=== PATIENT | female | born 1965 | race Caucasian/White ===

== ENCOUNTER → 2016-12-29 | Outpatient (CLI) | payer BC | END | disposition home or self-care (01) | LOC: C.MAMM 09:56 | PROVIDERS: ATTEND Surgery | DX: E21.3 Hyperparathyroidism, unspecified (principal) ==

== ENCOUNTER 2019-03-26 11:25 | Observation (INO) ==
[2019-03-26] MEDS ORDERED: SODIUM CHLORIDE 0.9% 1000ML 1,000 ML IV ONE (11:44)
[2019-03-26] MEDS ORDERED: KETOROLAC TROMETHAMINE 15 MG/ML VIAL IV STA (11:44)
[2019-03-26 12:22] LABS: Basophils # (auto) 0.02 K/uL (0-0.2); Basophils % (auto) 0.3 %; Eosinophils # (auto) 0.09 K/uL (0-0.5); Eosinophils % (auto) 1.3 %; Hematocrit (blood only) 41.8 % (37-47); Hemoglobin 13.8 g/dL (12.0-16.0); Immature Granulocytes # (auto) 0.01 K/uL (0.00-0.02); Immature Granulocytes % (auto) 0.1 %; Lymphocytes # (auto) 1.53 K/uL (1.2-3.4); Lymphocytes % (auto) 21.8 %; Mean Corpuscular Hemoglobin 26.7 pg (25-34); Mean Corpuscular Volume 80.9 fL (80-100); Mean Platelet Volume 12.3 fL (7.4-10.4); Monocytes # (auto) 0.74 K/uL (0.11-0.59); Monocytes % (auto) 10.6 %; Neutrophils # (auto) 4.62 K/uL (1.4-6.5); Neutrophils % (auto) 65.9 %; Platelet Count 182 K/uL (130-400); RDW Standard Deviation 43.8 fL (36.4-46.3); Red Blood Count 5.17 M/uL (4.2-5.4); White Blood Count 7.01 K/uL (4.8-10.8)
[2019-03-26 12:24] LABS: Appearance Urine Clear (Clear); Bilirubin Urine Negative (Negative); Blood Urine Negative (Negative); Color Urine Yellow; Glucose Urine UA Negative (Negative); Ketones Urine Negative (Negative); Leukocyte Esterase Urine Negative (Negative); Nitrite Urine Negative (Negative); Protein Urine Negative (Negative); Specific Gravity Urine 1.012 (1.000-1.030); Urobilinogen Urine Negative (Negative); pH Urine 5.5 (4.5-7.5)
[2019-03-26 12:41] LABS: Albumin Level 3.9 gm/dl (3.4-5.0); BUN Creatinine Ratio 15.2 (10-20); Bilirubin Direct 0.2 mg/dl (0-0.2); Calcium 9.3 mg/dl (8.5-10.1); Creatinine Clr Calc Pharmacy 70.6 ml/min; Est GFR (African American) 96.1; Est GFR (Non-African American) 82.9; Potassium 3.7 mmol/L (3.5-5.1)
[2019-03-26 12:44] LABS: Bilirubin,Total 0.6 mg/dl (0.2-1); Total Protein 7.6 gm/dl (6.4-8.2)
[2019-03-26] MEDS ORDERED: IOVERSOL 100ml IV PRN (13:07)
--- NOTE | 2019-03-26 13:29 | CT Scan Report ---
CT abd pelvis IV con only CT DOSE: 368.90 mGycm HISTORY: Flank pain ro aapy TECHNIQUE: Multiaxial CT images of the abdomen and pelvis were performed following the use of intrave nous contrast. A dose lowering technique was utilized adhering to the principles of ALARA. COMPARISON STUDY: None. FINDINGS: Lung bases are clear. Liver spleen and pancreas are unremarkable. No evidence for gallbladd er distention. 7 x 11 mm nonobstructing lower pole right renal calcification. Nonobstructive bowel pattern. Fluid-filled slightly distended appendix with a maximum diameter of 7.5 mm. No evidence for abscess c ollection or obstructive change. Pelvic bowel pattern is unremarkable. There are small ovarian follicular cysts less than 1.5 cm. Bladder is midline. IMPRESSION: 1. Findings of acute appendicitis. 2. The appendix is fluid-filled and distended to 7.5 mm in maximum diameter. 3. No evidence for abscess collection or obstructive change. 4. Nonobstructing lower pole right renal calcification. 5. Several small ovarian follicular cysts. The above report was generated using voice recognition software. It may contain grammatical, syntax or spelling errors. Electronically signed by: Harshil Gutierrez M.D. 03/26/2019 1:28 PM
[2019-03-26] MEDS ORDERED: cefTRIAXone SODIUM 1,000 MG/50 ML BAG IV STA (13:49)
[2019-03-26] MEDS ORDERED: metroNIDAZOLE 500 MG/100 ML BAG IV STA (13:49)
[2019-03-26] MEDS ORDERED: ONDANSETRON INJ 2 MG/ML 2 ML VIAL ONE (13:58)
[2019-03-26] MEDS ORDERED: PROPOFOL IV EMULSION 10 MG/ML 20 ML VIAL IV ONE (13:58)
[2019-03-26] MEDS ORDERED: GLYCOPYRROLATE 0.2 MG/ML VIAL ONE ×2 (13:58→15:53)
[2019-03-26] MEDS ORDERED: fentaNYL citrate 100 MCG/2 ML VIAL ONE (13:58)
[2019-03-26] MEDS ORDERED: LIDOCAINE HCL 2% 2 ML VIAL/AMP(20MG/ML) INFIL ONE (13:58)
[2019-03-26] MEDS ORDERED: MIDAZOLAM HCL 1 MG/ML 2ML VIAL ONE (13:58)
[2019-03-26] MEDS ORDERED: DEXAMETHASONE SOD INJ 4 MG/ML VIAL ONE (13:58)
[2019-03-26] MEDS ORDERED: NEOSTIGMINE METHYLSULFATE 5 MG/5 ML SYR ONE (13:58)
[2019-03-26] MEDS ORDERED: BUPIVACAINE 0.5 % 5 MG/1 ML MPF 30ML VIAL ONE (14:00)
[2019-03-26] MEDS ORDERED: LARYING-O-JET KIT (LTA) ONE (14:02)
[2019-03-26] MEDS ORDERED: ROCURONIUM BROMIDE 10 MG/ML 5 ML VIAL ONE (14:02)
--- NOTE | 2019-03-26 14:04 | Anesthesiology Consultation ---
Date of Service March 26, 2019 Assessment & Plan (1) Encounter for pre-operative examination: Chart Review Chart Review: Acceptable Risk for Surgery Consults Requested none ASA [id number] Proposed Anesthesia Anesthesia Type: General Risk / Benefits Reviewed With: PT / POA / Parent / Guardian, Accepts Plan and Informed Consent Obtained History Surgery Operation Date: 03/26/19 07:00 Proposed Procedures p Laparoscopic Appendectomy - Daniele Andre MD, FACS Height/Weight Height: 5 ft 5 in Weight: 55.7 kg Allergies Allergy/AdvReac Type Severity Reaction Status Date / Time No Known Allergies Allergy Unknown Verified 12/28/03 09:23 Medications Home Medications Medication Instructions Recorded Confirmed Last Taken cholecalciferol (vitamin D3) 5,000 unit PO QAM #0 11/18/17 03/26/19 Unknown magnesium oxide 400 mg PO QAM #0 11/18/17 03/26/19 Unknown melatonin 3 mg PO HS #0 11/18/17 03/26/19 03/25/19 bupropion HCl 150 mg PO QAM 03/26/19 03/26/19 03/26/19 cyclosporine [Restasis] 1 drp OPB BID 03/26/19 03/26/19 03/26/19 ferrous sulfate 325 mg PO BID 03/26/19 03/26/19 Unknown multivitamin 1 tab PO QAM 03/26/19 03/26/19 Unknown omega-3 fatty acids-fish oil 1 cap PO QAM 03/26/19 03/26/19 Unknown sertraline 100 mg PO QAM 03/26/19 03/26/19 03/26/19 Active Medications Generic Name Dose Route Start Last Admin Trade Name Freq PRN Reason Stop Dose Admin Ioversol 94 ml 03/26/19 13:07 03/26/19 13:08 Optiray 320 100ml IV 03/30/19 13:06 94 ml ONCE PRN Administration Interaction Checking NPO Date Last Intake of Fluids: 03/26/19 Time Last Intake of Fluids: 10:00 Date Last Intake of Solids: 03/26/19 Time Last Intake of Solids: 10:00 Past Medical History Medical History Concussion No pertinent past medical history Exercise / Class Metabolic Activity II 4-5 Yardwork/Stairs/Walk up hill Past Surgical History Surgical History No pertinent past surgical history S/P decompression of ulnar nerve S/P parathyroidectomy S/P wrist surgery Past Anesthesia History No Hx of Anesthesia Complications and No Family Hx of Anesthesia Complications History of PONV No Hx of PONV and No Hx of Motion Sickness Social History Smoking Status: Never smoker Physical Exam Vital Signs Last Vital Signs Temp 36.9 C 03/26/19 14:54 Pulse 63 03/26/19 14:54 Resp 18 03/26/19 14:54 BP 136/72 03/26/19 14:54 Pulse Ox 100 03/26/19 14:54 ENMT Mouth: no dentition abnormality Thyromental Distance: > or= 3.5 Finger Breadths Mallampati Class: II Neck normal visual inspection Respiratory normal respiratory effort Auscultation: lungs clear to auscultation bilaterally Cardiovascular Rate/Rhythm: regular rate and regular rhythm Testing Laboratory Results 03/26/19 12:08 03/26/19 12:08 Urine Color Yellow 03/26/19 12:08 Urine Appearance Clear (Clear) 03/26/19 12:08 Urine pH 5.5 (4.5-7.5) 03/26/19 12:08 Ur Specific [place] 1.012 (1.000-1.030) 03/26/19 12:08 Urine Protein Negative (Negative) 03/26/19 12:08 Urine Glucose (UA) Negative (Negative) 03/26/19 12:08 Urine Ketones Negative (Negative) 03/26/19 12:08 Urine Nitrite Negative (Negative) 03/26/19 12:08 Ur Leukocyte Esterase Negative (Negative) 03/26/19 12:08
--- NOTE | 2019-03-26 14:09 | History & Physical Report ---
Date of Service March 26, 2019 Assessment & Plan (1) Appendicitis: This is a 53y F who presents to the [facility] ED on 03/26/19 feeling generally unwell along with right lower abdominal pain with eating/walking/palpation. In the ED CT a/p performed revealed findings concerning for acute appendicitis. WBC 7 and patient afebrile. On exam patient is tender in the RLQ. Keep patient NPO with IVF and administer pre-op abx. We will book patient for the OR today. Surgical consent obtained by Dr. Andre. Patient expressed some concerns regarding a concussion injury after a fall last year after para-thyroid surgery, anesthesia will eval pre-op. Dr Andre-evaluated patient in the emergency room-presented with abdominal pain which appears to be in the right lower quadrant. Her CAT scan shows evidence of acute appendicitis with no abscess. We will proceed with laparoscopic appendectomy possible open appendectomy History of Present Illness Primary Care Provider: Len Stanley MD This is a 53y F who presents to the [facility] ED on 03/26/19 with complaints of feeling unwell and abdominal pain after eating/activity/and during palpation. Patient states that she noticed the abdominal pain on started on Monday, it woke her up from her sleep and she was not able to get comfortable. During this time she felt nauseated, but did not vomit. On Monday she said she slept majority of the day and then today was debating going to work, however she continued to feel unwell and felt tenderness around her belly button and right lower abdomen upon palpation. She called her PCP to describe her symptoms and they recommended the patient come to the ED for further evaluation. In the ED a CT a/p was performed revealing concern for acute appendicitis. WBC 7 and patient afebrile. She endorses + bloating, burping, and chills. She denies diarrhea. She states her pain is worse after eating and/or walking and describes it as sharp. Surgery was consulted for further evaluation. Patient has no previous abdominal surgeries. Allergies Allergy/AdvReac Type Severity Reaction Status Date / Time No Known Allergies Allergy Unknown Verified 12/28/03 09:23 Home Medications Home Medications Medication Instructions Recorded Confirmed Type cholecalciferol (vitamin D3) 5,000 unit PO QAM #0 11/18/17 03/26/19 History magnesium oxide 400 mg PO QAM #0 11/18/17 03/26/19 History melatonin 3 mg PO HS #0 11/18/17 03/26/19 History bupropion HCl 150 mg PO QAM 03/26/19 03/26/19 History cyclosporine [Restasis] 1 drp OPB BID 03/26/19 03/26/19 History ferrous sulfate 325 mg PO BID 03/26/19 03/26/19 History multivitamin 1 tab PO QAM 03/26/19 03/26/19 History omega-3 fatty acids-fish oil 1 cap PO QAM 03/26/19 03/26/19 History sertraline 100 mg PO QAM 03/26/19 03/26/19 History Past Med/Surg History Medical History No pertinent past medical history Surgical History No pertinent past surgical history Social History Feels Safe at Home: Yes Smoking Status: Never smoker Review of Systems Constitutional: + chills; no fever Respiratory: no shortness of breath Cardiovascular: no chest pain Gastrointestinal: + abdominal pain (upon palpation around belly button and right lower abdomen), + belching, + bloating and + nausea; no vomiting and no change in bowel habits Physical Exam Physical Exam: awake/alert Constitutional: well developed and well nourished; no acute distress Respiratory: normal respiratory effort Gastrointestinal (Abdomen): Inspection/Auscultation: abdomen not distended and no abdominal surgical scar Percussion/Palpation: + abdomen tender (in RLQ) and abdomen soft Results & Data Vital Signs (Past 12 Hours) Vital Signs Temp Pulse Pulse Resp BP BP Pulse Ox 03/26/19 12:40 60 20 124/64 100 03/26/19 11:27 36.7 C 61 20 143/[address] abd pelvis IV con only CT DOSE: 368.90 mGycm HISTORY: Flank pain ro aapy TECHNIQUE: Multiaxial CT images of the abdomen and pelvis were performed following the use of intravenous contrast. A dose lowering technique was utilized adhering to the principles of ALARA. COMPARISON STUDY: None. FINDINGS: Lung bases are clear. Liver spleen and pancreas are unremarkable. No evidence for gallbladder distention. 7 x 11 mm nonobstructing lower pole right renal calcification. Nonobstructive bowel pattern. Fluid-filled slightly distended appendix with a maximum diameter of 7.5 mm. No evidence for abscess collection or obstructive change. Pelvic bowel pattern is unremarkable. There are small ovarian follicular cysts less than 1.5 cm. Bladder is midline. IMPRESSION: 1. Findings of acute appendicitis. 2. The appendix is fluid-filled and distended to 7.5 mm in maximum diameter. 3. No evidence for abscess collection or obstructive change. 4. Nonobstructing lower pole right renal calcification. 5. Several small ovarian follicular cysts. The above report was generated using voice recognition software. It may contain grammatical, syntax or spelling errors. Electronically signed by: Harshil Gutierrez M.D. 03/26/2019 1:28 PM PG Care Time/CCT Total # of Minutes Spent Total Time Spent with Patient: Total time spent is greater than 50% in coordination of care (as documented) at patient's floor/unit and/or counseling patient: (1) Appendicitis Appendicitis type: unspecified Qualified Code(s): K37 - Unspecified appendicitis
[2019-03-26] MEDS ORDERED: ePHEDrine sulfate 50 MG/ML AMP IV PRN (14:28)
[2019-03-26] MEDS ORDERED: fentaNYL citrate 100 MCG/2 ML VIAL IV PRN (14:28)
[2019-03-26] MEDS ORDERED: ONDANSETRON INJ 2 MG/ML 2 ML VIAL IV PRN ×2 (14:28→17:33)
[2019-03-26] MEDS ORDERED: ATROPINE SULFATE 0.1 MG/ML 10ML SYR IV PRN (14:28)
--- NOTE | 2019-03-26 14:56 | Emergency Department Note ---
Entered by Justin Hendrix acting as a scribe for Ashutosh Ross History of Present Illness General Chief complaint: Abdominal Pain Stated complaint: ABD PAIN Time Seen by Provider: 03/26/19 11:32 Source: patient History of Present Illness Provider complaint: right sided abdominal pain Onset (ago): day(s) 3 Location: abdomen and right Radiation: non-radiation Maximum Pain Intensity: 1 Associated symptoms: + denies other symptoms and + nausea/vomiting (some nausea and no vomiting); no chest pain and no shortness of breath The patient is a 53 year old female who presents to the emergency department for evaluation of intermittent right sided abdominal pain that began 3 days ago. The patient states that she was woken up in the middle of the night with the pain and it has persisted with some nausea. She notes she felt the need to vomit but she has not eaten much and been feeling unwell when she does. The patient reports that she is beginning to feel better currently but was told to come to the ED for evaluation. The patient denies vomiting, SOB, chest pain, urinary changes, blood in stool, and any other symptoms. Home Medications Home Medications Medication Instructions Recorded Confirmed Type cholecalciferol (vitamin D3) 5,000 unit PO QAM #0 11/18/17 03/26/19 History magnesium oxide 400 mg PO QAM #0 11/18/17 03/26/19 History melatonin 3 mg PO HS #0 11/18/17 03/26/19 History bupropion HCl 150 mg PO QAM 03/26/19 03/26/19 History cyclosporine [Restasis] 1 drp OPB BID 03/26/19 03/26/19 History ferrous sulfate 325 mg PO BID 03/26/19 03/26/19 History multivitamin 1 tab PO QAM 03/26/19 03/26/19 History omega-3 fatty acids-fish oil 1 cap PO QAM 03/26/19 03/26/19 History sertraline 100 mg PO QAM 03/26/19 03/26/19 History Allergies Allergy/AdvReac Type Severity Reaction Status Date / Time No Known Allergies Allergy Unknown Verified 12/28/03 09:23 Past Med/Surg History Medical History No pertinent past medical history Surgical History No pertinent past surgical history Social History Feels Safe at Home: Yes Smoking Status: Never smoker Review of Systems See HPI for pertinent positives & negatives. and A total of 10 systems reviewed and were otherwise negative Physical Exam Vital Signs Vital Signs - 24 hr 03/26/19 11:27 03/26/19 12:40 03/26/19 14:34 Temperature 36.7 C Temperature Source Oral Pulse Rate 61 Pulse Rate [Finger] 60 65 Respiratory Rate 20 20 18 Blood Pressure 143/78 H Blood Pressure [Left Arm] 124/64 131/77 Blood Pressure Mean 99 Blood Pressure Mean [Left Arm] 84 95 Pulse Oximetry 100 100 100 Oxygen Delivery Method Room Air Room Air Sepsis Recent Fever Within 48 Hours No Sepsis New/Unexplained Change in Mental Status No Sepsis Action Taken by Nursing No Action Required GENERAL: She is oriented to person, place, and time. She appears well-developed and well-nourished. She does not appear distressed. HENT: Exam performed. - Head: Normocephalic and atraumatic. - Right Ear: External ear normal. No mastoid tenderness. - Left Ear: External ear normal. No mastoid tenderness. - Mouth/Throat: The oropharynx is clear and moist. No trismus in the jaw. No dental abscesses or uvula swelling. No oropharyngeal exudate or tonsillar abscesses. EYES: Conjunctivae and EOM are normal. Pupils are equal, round, and reactive to light. Right eye exhibits no discharge. Left eye exhibits no discharge. No scleral icterus. NECK: Normal range of motion. Neck supple. No JVD present. No spinous process tenderness present. No carotid bruit present. No rigidity. No tracheal deviation and normal range of motion present. No Brudzinski's sign and no Kernig's sign noted. CV: Normal rate, regular rhythm, normal heart sounds and intact distal pulses. There is no peripheral edema. Palpable radial pulses bue. PULM/CHEST: Effort normal and breath sounds normal. No respiratory distress. No stridor. She has no wheezes. She has no rales. Chest Wall: She exhibits no tenderness. ABD: The abdomen is soft. Bowel sounds are normal. She has no distension. No mass is present. There is tenderness to palpationof right lower quadrent. There is no rebound, no guarding, no Salazar's sign and no tenderness at McBurney's point. Rovsig negative MUSC/SKEL: Normal range of motion. There is no peripheral edema, tenderness or deformity. LYMPH: No cervical adenopathy. NEURO: She is alert and oriented to person, place, and time. She has normal strength. No cranial nerve deficit or sensory deficit. Coordination and gait normal. GCS eye subscore is 4. GCS verbal subscore is 5. GCS motor subscore is 6. cerbellar tests wnl. SKIN: Skin is warm and dry. She is not diaphoretic. PSYCH: She has a normal mood and affect. Her behavior is normal. Judgment and thought content normal. Course Course 1140: Past medical records reviewed. The patient was evaluated in room C01B. A complete history and physical exam was performed. 1435: Vital signs stable. On repeat physical exam the patient continues have pain on palpation of the right lower quadrant. Labs within normal limits. CT shows evidence of acute appendicitis. Patient will be started on Rocephin and Flagyl. I spoke with Octavio for Dr. Andre- general surgery, they will evaluate for further management. Administered Medications Ioversol (Optiray 320 100ml) 94 ml IV ONCE PRN PRN Reason: Interaction Checking Stop: 03/30/19 13:06 Last Admin: 03/26/19 13:08 Dose: 94 ml Documented by: [id number] Discontinued Medications Sodium Chloride (Nss 1000ml) 1,000 mls @ 999 mls/hr IV .Q1H1M ONE Stop: 03/26/19 12:44 Last Infusion: 03/26/19 13:15 Dose: 0 mls/hr Documented by: [id number] Admin: 03/26/19 12:14 Dose: 999 mls/hr Documented by: [id number] Ceftriaxone Sodium (Rocephin) 1,000 mg in 50 mls @ 100 mls/hr IV NOW STA Stop: 03/26/19 14:18 Last Infusion: 03/26/19 14:29 Dose: 0 mls/hr Documented by: [id number] Admin: 03/26/19 13:59 Dose: 100 mls/hr Documented by: [id number] Metronidazole (Flagyl) 500 mg in 100 mls @ 100 mls/hr IV NOW STA Stop: 03/26/19 14:48 Last Admin: 03/26/19 14:11 Dose: 100 mls/hr Documented by: [id number] Ketorolac Tromethamine (Toradol) 15 mg IV NOW STA Stop: 03/26/19 11:45 Last Admin: 03/26/19 12:14 Dose: Not Given Documented by: [id number] Medical Decision Making Medical Records Attestation: I reviewed the patient's medical records. Home Medications Current Medication List: was personally reviewed by me Laboratory Data Attestation: I reviewed the patient's lab results. Result diagrams: 03/26/19 12:08 03/26/19 12:08 Lab Results 03/26/19 03/26/19 03/26/19 Range/Units 12:08 12:08 12:08 WBC 7.01 (4.8-10.8) K/uL RBC 5.17 (4.2-5.4) M/uL Hgb 13.8 (12.0-16.0) g/dL Hct 41.8 (37-47) % MCV 80.9 (80-100) fL MCH 26.7 (25-34) pg MCHC 33.0 (32-36) g/dL RDW Std Deviation 43.8 (36.4-46.3) fL RDW Coeff of Sum[place] 15.0 H (11.5-14.5) % Plt Count 182 (130-400) K/uL MPV 12.3 H (7.4-10.4) fL Immature Gran % (Auto) 0.1 % Neut % (Auto) 65.9 % Lymph % (Auto) 21.8 % [place] % (Auto) 10.6 % Eos % (Auto) 1.3 % Baso % (Auto) 0.3 % Immature Gran # (Auto) 0.01 (0.00-0.02) K/uL Neut # (Auto) 4.62 (1.4-6.5) K/uL Lymph # (Auto) 1.53 (1.2-3.4) K/uL [place] # (Auto) 0.74 H (0.11-0.59) K/uL Eos # (Auto) 0.09 (0-0.5) K/uL Baso # (Auto) 0.02 (0-0.2) K/uL Sodium 138 (136-145) mmol/L Potassium 3.7 (3.5-5.1) mmol/L Chloride 106 (98-107) mmol/L Carbon Dioxide 26 (21-32) mmol/L Anion Gap 6.0 (3-11) BUN 12 (7-18) mg/dl Creatinine 0.81 (0.6-1.2) mg/dl Est Cr Clr Drug Dosing 70.6 ml/min Est GFR ( Amer) 96.1 Est GFR (Non-Af Amer) 82.9 BUN/Creatinine Ratio 15.2 (10-20) Glucose 95 (70-99) mg/dl Calcium 9.3 (8.5-10.1) mg/dl Total Bilirubin 0.6 (0.2-1) mg/dl Direct Bilirubin 0.2 (0-0.2) mg/dl AST 22 (15-37) U/L ALT 30 (12-78) U/L Alkaline Phosphatase 70 (45-117) U/L Total Protein 7.6 (6.4-8.2) gm/dl Albumin 3.9 (3.4-5.0) gm/dl Lipase 137 (73-393) U/L Urine Color Yellow Urine Appearance Clear (Clear) Urine pH 5.5 (4.5-7.5) Ur Specific [place] 1.012 (1.000-1.030) Urine Protein Negative (Negative) Urine Glucose (UA) Negative (Negative) Urine Ketones Negative (Negative) Urine Blood Negative (Negative) Urine Nitrite Negative (Negative) Urine Bilirubin Negative (Negative) Urine Urobilinogen Negative (Negative) Ur Leukocyte Esterase Negative (Negative) Imaging Data Radiologist's Impression: Radiology results as stated below per my review and the radiologist's interpretation: CT abd pelvis IV con only CT DOSE: 368.90 mGycm HISTORY: Flank pain ro aapy TECHNIQUE: Multiaxial CT images of the abdomen and pelvis were performed following the use of intravenous contrast. A dose lowering technique was utili zed adhering to the principles of ALARA. COMPARISON STUDY: None. FINDINGS: Lung bases are clear. Liver spleen and pancreas are unremarkable. No evidence for gallbladder distention. 7 x 11 mm nonobstructing lower pole right renal calcification. Nonobstructive bowel pattern. Fluid-filled slightly distended appendix with a maximum diameter of 7.5 mm. No evidence for abscess collection or obstructive change. Pelvic bowel pattern is unremarkable. There are small ovarian follicular cysts less than 1.5 cm. Bladder is midline. IMPRESSION: 1. Findings of acute appendicitis. 2. The appendix is fluid-filled and distended to 7.5 mm in maximum diameter. 3. No evidence for abscess collection or obstructive change. 4. Nonobstructing lower pole right renal calcification. 5. Several small ovarian follicular cysts. The above report was generated using voice recognition software. It may contain grammatical, syntax or spelling errors. Electronically signed by: Harshil Gutierrez M.D. 03/26/2019 1:28 PM Blood Pressure Blood Pressure Findings: Elevated blood pressure Blood Pressure Disposition: Referred to patients primary care provider MDM Narrative Vital signs stable. On repeat physical exam the patient continues have pain on palpation of the right lower quadrant. Labs within normal limits. CT shows evidence of acute appendicitis. Patient will be started on Rocephin and Flagyl. I spoke with Octavio for Dr. Andre- general surgery, they will evaluate for further management. Impression & Plan Appendicitis Discharge Plan Visit Data Chief Complaint: Abdominal Pain Stated Complaint: ABD PAIN ED Provider: Ashutosh Ross Discharge Problem: Appendicitis Patient Disposition: Still a Patient Discharge Instructions Interventions: ED Discharge Assessment Last Done: 03/26/19 14:35 Discharge Problem: Appendicitis Qualifiers: Appendicitis type: unspecified Qualified Code(s): K37 - Unspecified appendicitis The scribe's documentation has been prepared under my direction and personally reviewed by me in its entirety. I confirm that the note above accurately reflects all work, treatment, procedures, and medical decision making performed by me.
[2019-03-26] MEDS ORDERED: ACETAMINOPHEN 1000 MG/100 ML IV IV ONE (15:15)
[2019-03-26] MEDS ORDERED: KETOROLAC 30 MG/ML VIAL ONE (15:49)
[2019-03-26] MEDS ORDERED: ACETAMINOPHEN 1,000 MG/100 ML VIAL IV ONE (15:59)
--- NOTE | 2019-03-26 15:59 | Post Operative Brief Note ---
PG Immediate Post Op with CF Date of Surgery March 26, 2019 Pre & Post Diagnosis Operation Date: 03/26/19 07:00 Pre-Op Diagnosis: Appendicitis Post-Op Diagnosis: Appendicitis I identified the patient and participated in the time-out.: Yes Procedure Operation Date: 03/26/19 07:00 Actual Procedures p Laparoscopic Appendectomy - Daniele Andre MD, FACS Surgeon Daniele Andre MD, FACS Research And Development Director Deneen Schrader Estimated Blood Loss 5 Findings Consistent with Post-Op Diagnosis Specimens Specimen Description: A. Appendix.
--- NOTE | 2019-03-26 16:33 | Operative Report ---
DATE OF OPERATION: 03/26/2019 NAME OF OPERATION: Laparoscopic appendectomy. PREOPERATIVE DIAGNOSIS: Acute appendicitis. POSTOPERATIVE DIAGNOSIS: Acute appendicitis. STAFF SURGEON: Daniele Andre MD. RAISIN WASHER: Micheline Whitfield. ANESTHESIA: General. DESCRIPTION OF PROCEDURE: The patient was brought in the Operating Room and placed on the operating table in supine position. Her abdomen was prepped and draped in usual fashion. Pneumatic stockings, orogastric tube were placed. My mailing machine assistant helped with prepping, draping, removal of her appendix and closure of the wound. A 0.5% plain Marcaine was used to anesthetize all incisions. Incision was made above the umbilicus, carrying dissection down to the fascia, placing a Veress needle producing pneumoperitoneum, placing a 5 mm port. Under visualization, a 5 mm port was placed suprapubically. I was able to visualize the appendix. A 12 mm port placed in the left lower quadrant. At this point, the appendix was retracted. The base of the appendix was transected using an Endo-XIOMARA stapler and then the mesoappendix transected using the Endo XIOMARA stapler. There is a mild amount of bleeding from the base, which was oozing at the staple line. A 10 mm clips were used to place over this area. After appropriate irrigation, the appendix was placed in an Endobag and removed through the left lower quadrant site. After additional irrigation, all ports were removed. The fascia in the left lower quadrant closed using interrupted 0 Vicryl suture. Skin reapproximated at all levels using subcuticular 4-0 Monocryl, Steri-Strips in the left lower quadrant, Dermabond at the other incisions. The patient transferred to Recovery Room in stable condition. I attest to the content of the Intraoperative Record and any orders documented therein. Any exception s are noted below.
--- NOTE | 2019-03-26 16:45 | Anesthesiology Progress Note ---
Date of Service March 26, 2019 Anesthesia Post Procedure Vital Signs Vital Signs: Temp Pulse Pulse Pulse Resp BP BP 03/26/19 16:30 54 L 11 L 148/75 H 03/26/19 16:25 57 L 15 140/72 03/26/19 16:20 58 L 17 131/75 03/26/19 16:15 65 13 139/73 03/26/19 16:11 37.3 C 65 67 19 144/74 H 144/74 H 03/26/19 14:54 36.9 C 63 18 136/72 03/26/19 14:34 65 18 131/77 03/26/19 12:40 60 20 124/64 03/26/19 11:27 36.7 C 61 20 143/78 H Pulse Ox 03/26/19 16:30 100 03/26/19 16:25 100 03/26/19 16:20 100 03/26/19 16:15 100 03/26/19 16:11 100 03/26/19 14:54 100 03/26/19 14:34 100 03/26/19 12:40 100 03/26/19 11:27 100 Pain Intensity Abdomen: Pain Intensity: 0 Transfer of Care Handoff Completed per policy Notes Mental Status: alert / awake / arousable Patient Amnestic to Procedure: Yes Nausea / Vomiting: adequately controlled Pain: adequately controlled Airway Patency, RR, SpO2: stable & adequate BP & HR: stable & adequate Hydration State: stable & adequate Anesthetic Complications: no major complications apparent
[2019-03-26] MEDS ORDERED: MoRPHine SULFATE 2 MG/ML CARP IV PRN ×2 (17:33)
[2019-03-26] MEDS ORDERED: PROMETHAZINE HCL 12.5 MG in SODIUM CHLORIDE 0.9% 50 ML IV PRN (17:33)
[2019-03-26] MEDS ORDERED: HYDROCODONE/ACETAMOPHEN 5/325MG TAB PO PRN ×2 (17:33)
[2019-03-26] MEDS: IBUPROFEN 600 MG TAB PO PRN (21:49)
[2019-03-26] MEDS ORDERED: INFLUENZA VIRUS QUAD VACCINE 0.5 ML SYR IM ONE (22:45)
[2019-03-26] MEDS ORDERED: INFLUENZA ADMINISTRATION CHARGE ONE (22:45)
[2019-03-26] MEDS: ACETAMINOPHEN 325 MG TAB PO PRN (23:50)
[2019-03-26] MEDS: SODIUM CHLORIDE 0.9% 1000ML 1,000 ML IV SCH (23:51)
[2019-03-27] MEDS: SODIUM CHLORIDE 0.9% 1000ML 1,000 ML IV SCH (03:55)
[2019-03-27 03:57] VITALS: PULSE 60
[2019-03-27] MEDS: IBUPROFEN 600 MG TAB PO PRN (04:13)
--- NOTE | 2019-03-27 06:23 | Discharge Summary ---
PRINCIPAL DIAGNOSIS: Acute appendicitis. PROCEDURES: The patient underwent laparoscopic appendectomy. HISTORY OF PRESENT ILLNESS: The patient is a 53-year-old female presenting to the Emergency Room with acute abdominal pain, found to have acute appendicitis. She was taken to the operating room on 03/26/2019 where she underwent laparoscopic appendectomy, which she tolerated very well and was felt stable for discharge home today to be followed in the surgical clinic within 1-2 weeks.
[2019-03-27 07:08] VITALS: BP 118/70; TEMP 98.4; O2SAT 99
[2019-03-27] MEDS: ACETAMINOPHEN 325 MG TAB PO PRN (07:25)
--- NOTE | 2019-03-27 08:20 | Anesthesiology Progress Note ---
Date of Service March 27, 2019 Anesthesia Post Procedure Vital Signs Vital Signs: Temp Pulse Pulse Pulse Resp BP BP 03/27/19 07:07 36.9 C 60 18 118/70 03/27/19 03:52 36.8 C 60 16 112/70 03/26/19 23:12 36.8 C 64 16 104/62 03/26/19 20:33 36.7 C 66 16 107/57 L 03/26/19 19:31 36.7 C 66 20 105/65 03/26/19 18:28 37.3 C 60 16 116/56 L 03/26/19 18:01 36.7 C 57 L 16 127/71 03/26/19 17:33 37.0 C 55 L 16 132/75 03/26/19 17:20 55 L 19 136/72 03/26/19 17:15 56 L 13 126/76 03/26/19 17:10 53 L 15 125/74 03/26/19 17:05 54 L 18 145/70 H 03/26/19 17:00 54 L 14 136/73 03/26/19 16:55 53 L 16 137/74 03/26/19 16:51 37.2 C 55 L 17 143/67 H 03/26/19 16:50 57 L 17 143/67 H 03/26/19 16:45 54 L 19 146/71 H 03/26/19 16:40 53 L 16 138/75 03/26/19 16:35 49 L 16 124/81 03/26/19 16:30 54 L 11 L 148/75 H 03/26/19 16:25 57 L 15 140/72 03/26/19 16:20 58 L 17 131/75 03/26/19 16:15 65 13 139/73 03/26/19 16:11 37.3 C 65 67 19 144/74 H 144/74 H 03/26/19 14:54 36.9 C 63 18 136/72 03/26/19 14:34 65 18 131/77 03/26/19 12:40 60 20 124/64 03/26/19 11:27 36.7 C 61 20 143/78 H Pulse Ox 03/27/19 07:07 99 03/27/19 03:52 97 03/26/19 23:12 94 03/26/19 20:33 95 03/26/19 19:31 95 03/26/19 18:28 96 03/26/19 18:01 96 03/26/19 17:33 97 03/26/19 17:20 96 03/26/19 17:15 96 03/26/19 17:10 97 03/26/19 17:05 98 03/26/19 17:00 98 03/26/19 16:55 99 03/26/19 16:51 100 03/26/19 16:50 100 03/26/19 16:45 100 03/26/19 16:40 99 03/26/19 16:35 100 03/26/19 16:30 100 03/26/19 16:25 100 03/26/19 16:20 100 03/26/19 16:15 100 03/26/19 16:11 100 03/26/19 14:54 100 03/26/19 14:34 100 03/26/19 12:40 100 03/26/19 11:27 100 Pain Intensity Abdomen: Pain Intensity: 4 Medial Back: Pain Intensity: 4 Notes Mental Status: alert / awake / arousable and participated in evaluation Patient Amnestic to Procedure: Yes Nausea / Vomiting: adequately controlled Pain: adequately controlled Airway Patency, RR, SpO2: stable & adequate BP & HR: stable & adequate Hydration State: stable & adequate Anesthetic Complications: no major complications apparent and Pt Satisfied with anesthetic care
[2019-03-27] MEDS ORDERED: BuPROPion XL 150 MG TABCR PO SCH (09:00)
[2019-03-27] MEDS ORDERED: SERTRALINE HCL 100 MG TABLET PO SCH (09:00)
== END 2019-03-27 10:18 | disposition home or self-care (01) ==
LOC: ED 11:25 → 3W 13:45 → ASU 13:45